=== PATIENT | female | born 1985 | race Caucasian/White ===

== ENCOUNTER 2021-11-04 19:50 | Emergency (ER) | payer OTHER ==
[~2021-11-04] VITALS: Ht 147.3 cm; Wt 59.0 kg
[~2021-11-04 19:50] MED LIST: FLUC150T38 PO; METR0.7511 PV; NITR-87 PO; TRAM50TA2 PO
[2021-11-04] MEDS ORDERED: LIDOCAINE 1% HCL (LOCAL ANESTH.) INJ 20ML MDV ID ONE (21:30)
[2021-11-04] MEDS ORDERED: NEOMYCIN-BACITRACIN-POLYM UNITDOSE PKG TOP OINT TOP ONE (21:30)
[2021-11-04 21:36] VITALS: BP 148/103
== END 2021-11-04 22:48 | disposition home or self-care (01) ==
LOC: ER 19:54
DX: S60.454A Superficial foreign body of right ring finger, initial encounter (principal); W25.XXXA Contact with sharp glass, initial encounter; Y93.89 Activity, other specified; Y92.89 Other specified places as the place of occurrence of the external cause; Y99.8 Other external cause status
CPT/HCPCS: 10120; 73140; 99285; J2001; 12001